=== PATIENT | male | born 1955 | race Caucasian/White ===

== ENCOUNTER 2016-08-31 20:32 | Inpatient (IN) | payer OTHER, MEDICAID ==
--- NOTE | 2016-08-31 20:40 | EDPHY ---
H & P Time Seen by Provider: 08/31/16 20:32 HPI/ROS: CHIEF COMPLAINT: Chest pain, suicidal ideation HISTORY OF PRESENT ILLNESS: The patient is a 61-year-old homeless man who was discharged from [facility] today. He called 911 from the postop stating that he had chest pain. He now states that it is gone. He states that it was present for about 4 hours. He denies shortness of breath or diaphoresis. It did not worsened with exertion. According to EMS it was tender to palpation. No fevers or recent infections. He denies recent drug or alcohol use. He also told EMS that he felt depressed and occasionally considered suicide and that that is why he was at [facility] for so long. REVIEW OF SYSTEMS: Constitutional: denies: chills, fever, recent illness, recent injury EENTM: denies: blurred vision, double vision, nose congestion Respiratory: denies: cough, shortness of breath Cardiac: See HPI Gastrointestinal/Abdominal: denies: abdominal pain, diarrhea, nausea, vomiting, blood streaked stools Genitourinary: denies: dysuria, frequency, hematuria, pain Musculoskeletal: denies: joint pain, muscle pain Skin: denies: lesions, rash, jaundice, bruising Neurological: denies: headache, numbness, paresthesia, tingling, dizziness, weakness Hematologic/Lymphatic: denies: blood clots, easy bleeding, easy bruising Immunologic/allergic: denies: HIV/AIDS, transplant EXAM: GENERAL: Well-appearing, well-nourished and in no acute distress. HEAD: Atraumatic, normocephalic. EYES: Pupils equal round and reactive to light, extraocular movements intact, sclera anicteric, conjunctiva are normal. ENT: TMs normal, nares patent, oropharynx clear without exudates. Moist mucous membranes. NECK: Normal range of motion, supple without lymphadenopathy or JVD. LUNGS: Breath sounds clear to auscultation bilaterally and equal. No wheezes rales or rhonchi. HEART: Regular rate and rhythm without murmurs, rubs or gallops. ABDOMEN: Soft, nontender, normoactive bowel sounds. No guarding, no rebound. No masses appreciated. BACK: No CVA tenderness, no spinal tenderness, step-offs or deformities EXTREMITIES: Normal range of motion, no pitting or edema. No clubbing or cyanosis. NEUROLOGICAL: Cranial nerves II through XII grossly intact. Normal speech, normal gait. 5/5 strength, normal movement in all extremities, normal sensation PSYCH: Normal mood, normal affect. SKIN: Warm, dry, normal turgor, no visible rashes or lesions. Source: Patient, EMS Exam Limitations: No limitations - Medical/Surgical History Hx Asthma: No Hx Chronic Respiratory Disease: No Hx Diabetes: Yes Hx Cardiac Disease: No Hx Renal Disease: No Hx Cirrhosis: No Hx Alcoholism: Yes Other PMH: Hypertension, depression - Family History Significant Family History: Hypertension - Social History Smoking Status: Current some day smoker Alcohol Use: Sober Drug Use: None Constitutional: Initial Vital Signs Temperature (C) 36.7 C 08/31/16 20:40 Heart Rate 103 H 08/31/16 20:40 Respiratory Rate 18 08/31/16 20:40 Blood Pressure 159/97 H 08/31/16 20:40 O2 Sat (%) 92 08/31/16 20:40 O2 Delivery Mode Nasal Cannula O2 (L/minute) 2 Allergies/Adverse Reactions: No Known Allergies Allergy (Unverified 08/31/16 20:42) Home Medications: Medication Instructions Recorded Metformin HCl 08/31/16 Synthroid 08/31/16 Unk Bp Med 08/31/16 Medical Decision Making - Diagnostics EKG Interpretation: An EKG obtained and was read and documented in trace view. Please see trace view for full reading and report. Sinus rhythm, no acute ischemic changes. Imaging: X-ray: chest x-ray was obtained. I viewed the images myself on the PACS system. My interpretation of the images is: negative for acute disease . The radiologist interpretation is possible right upper lobe infiltrate. ED Course/Re-evaluation: After further discussion the patient states that he has been coughing and is productive for green yellow mucus. He states that he is supposed to wear oxygen at 3 L for history of COPD. No longer smokes. He is now denying suicidality. Will initiate the sepsis protocol. I will place him on TB precautions. 10:10 p.m. I discussed the case with Dr. Fitch who will admit to the medical service. She suggested AFB smears and Rocephin/azithromycin. Differential Diagnosis: Partial list of the Differential diagnosis considered include but were not limited to; pneumonia, acute coronary disease, arrhythmia and although unlikely based on the history and physical exam, I also considered dissection, PE, aneurysm. - Data Points Laboratory Results: Laboratory Results 08/31/16 21:10 08/31/16 21:10 08/31/16 08/31/16 21:20 21:10 WBC 11.05 H 10^3/uL (3.80-9.50) RBC 4.50 10^6/uL (4.40-6.38) Hgb 13.9 g/dL (13.7-17.5) Hct 40.1 % (40.0-51.0) MCV 89.1 fL (81.5-99.8) MCH 30.9 pg (27.9-34.1) MCHC 34.7 g/dL (32.4-36.7) RDW 14.0 % (11.5-15.2) Plt Count 227 10^3/uL (150-400) MPV 9.1 fL (8.7-11.7) Neut % (Auto) 96.5 H % (39.3-74.2) Lymph % (Auto) 2.2 L % (15.0-45.0) [place] % (Auto) 0.5 L % (4.5-13.0) Eos % (Auto) 0.0 L % (0.6-7.6) Baso % (Auto) 0.2 L % (0.3-1.7) Nucleat RBC Rel Count 0.0 % (0.0-0.2) Absolute Neuts (auto) 10.66 H 10^3/uL (1.70-6.50) Absolute Lymphs (auto) 0.24 L 10^3/uL (1.00-3.00) Absolute Monos (auto) 0.06 L 10^3/uL (0.30-0.80) Absolute Eos (auto) 0.00 L 10^3/uL (0.03-0.40) Absolute Basos (auto) 0.02 10^3/uL (0.02-0.10) Absolute Nucleated RBC 0.00 10^3/uL (0-0.01) Immature Gran % 0.6 % (0.0-1.1) Immature Gran # 0.07 10^3/uL (0.00-0.10) PT 13.0 SEC (12.0-15.0) INR 0.99 (0.83-1.16) APTT 29.5 SEC (23.0-38.0) Sodium 138 mEq/L (134-144) Potassium 4.2 mEq/L (3.5-5.2) Chloride 101 mEq/L (97-110) Carbon Dioxide 26 mEq/l (22-31) Anion Gap 11 mEq/L (8-16) BUN 15 mg/dL (7-23) Creatinine 0.7 mg/dL (0.7-1.3) Estimated GFR > 60 Glucose 212 H mg/dL (70-100) Calcium 9.4 mg/dL (8.5-10.4) Troponin I < 0.012 ng/mL (0-0.034) Ethyl Alcohol < 10 mg/dL (0-10) Departure - Departure Disposition: [facility] Inpatient Acute Clinical Impression: Chest pain, Pneumonia, Sepsis Condition: Fair Referrals: NONE *PRIMARY CARE P,. [Primary Care Provider] - As per Instructions
--- NOTE | 2016-08-31 20:40 | CPEKG ---
Heart Rate: 103 RR Interval: 583 P-R Interval: 156 QRSD Interval: 84 QT Interval: 352 QTC Interval: 461 P Wallback: 36 QRS Wallback: -23 T Wave Wallback: 15 EKG Severity - OTHERWISE NORMAL ECG - EKG Impression: SINUS TACHYCARDIA EKG Impression: BORDERLINE LEFT AXIS DEVIATION Electronically Signed By: Tano Rushing 31-Aug-2016 20:42:59
[2016-08-31 21:24] LABS: % IMMATURE GRANULYOCYTES 0.6 % (0.0-1.1); ABSOLUTE IMMATURE GRANULOCYTES 0.07 10^3/uL (0.00-0.10); ADD DIFF? NO; ADD MORPH? NO; ADD SCAN? NO; ATYPICAL LYMPHOCYTE FLAG 0 (0-99); FRAGMENT RBC FLAG 0 (0-99); HEMATOCRIT 40.1 % (40.0-51.0); HEMOGLOBIN 13.9 g/dL (13.7-17.5); LEFT SHIFT FLG 0 (0-99); LIPEMIA HEMOLYSIS FLAG 90 (0-99); MEAN CELL HEMOGLOBIN 30.9 pg (27.9-34.1); MEAN CELL HEMOGLOBIN CONCENTR. 34.7 g/dL (32.4-36.7); MEAN CELL VOLUME 89.1 fL (81.5-99.8); MEAN PLATELET VOLUME 9.1 fL (8.7-11.7); PLATELET CLUMPS FLAG 10 (0-99); PLATELET COUNT 227 10^3/uL (150-400)
[2016-08-31 21:35] LABS: ANION GAP 11 mEq/L (8-16); CALCIUM 9.4 mg/dL (8.5-10.4); CARBON DIOXIDE 26 mEq/l (22-31); CHLORIDE 101 mEq/L (97-110); CREATININE 0.7 mg/dL (0.7-1.3); ETHANOL SERUM < 10 mg/dL (0-10); GLOMERULAR FILTRATION RATE > 60; GLUCOSE 212 mg/dL (70-100); POTASSIUM 4.2 mEq/L (3.5-5.2); SODIUM 138 mEq/L (134-144)
--- NOTE | 2016-08-31 21:40 | DX ---
Chest, Two Views, August 31, 2016 at 2057 hours History: Chest pain. Comparison: None. Findings: Cardiac silhouette is mildly enlarged. Patient slightly rotated to the right. Possible p atchy right upper lobe opacity. No pleural effusion, pneumothorax, or definite pulmonary edema. Impression: Possible right upper lobe pneumonia. Findings and recommendations discussed with Emergency Department physician, Dr. Rushing, at 2135 hour s, on August 31, 2016. Final report concurs with initial preliminary interpretation.
[2016-08-31 21:46] LABS: TROPONIN I < 0.012 ng/mL (0-0.034)
[2016-08-31 21:57] LABS: INR 0.99 (0.83-1.16)
[2016-08-31 21:58] LABS: APTT 29.5 SEC (23.0-38.0)
[2016-08-31] MEDS ORDERED: AZITHROMYCIN IV 500 MG in D5W 250 ML IV SCH (22:30)
[2016-08-31] MEDS ORDERED: ACETAMINOPHEN 325 MG TAB PO PRN (22:50)
[2016-08-31] MEDS ORDERED: ONDANSETRON 4 MG/2 ML VIAL IVP PRN (22:50)
[2016-08-31] MEDS ORDERED: ISONIAZID 300 MG TAB PO SCH (23:00)
--- NOTE | 2016-08-31 23:47 | PDGENHP ---
History and Physical - Chief Complaint cough, shortness of breath - History of Present Illness Patient is a 61-year-old homeless male with hypertension, hyperlipidemia, COPD and major depression disorder, with recent Mental Health inpatient stay for about 3 weeks for suicidal ideations, was discharged from [facility] today , presents to the ED complaining cough and shortness of breath. Patient states symptoms have been present for about 2 weeks, developed while an inpatient, initially with cough. Patient states over the past 2 weeks cough has become productive of yellow green sputum, which is sometimes associated with specks of hemoptysis in his sputum. In addition, he reports associated shortness of breath, generalized weakness, chills and reports associated drenching night sweats. He states he reported his symptoms to the [facility] staff, but did not undergo any treatment. Upon discharge from the facility today he states he felt significantly weak, generalized fatigue and short of breath, so he called EMS and was brought to the ED. Patient states he has been homeless for over 6 months, has been in and out of shelters, mostly in [place], prior to his inpatient stay. He denies any travel outside of the country, is from [place] and has lived here his whole life. He denies any obvious sick contacts. On arrival to the ED patient was afebrile, hemodynamically stable and saturating well on room air. Labs revealed mild leukocytosis, negative lactate and normal electrolytes. Chest x-ray revealed possible right upper lobe infiltrate, consistent with pneumonia. Given his risk factors, a symptoms and location of infiltrate on chest x-ray, patient was placed on airborne isolation given concern for TB. He was given ceftriaxone and Azithro and admitted the hospital service for further management. History Information - Allergies/Home Medication List Allergies/Adverse Reactions: No Known Allergies Allergy (Unverified 08/31/16 20:42) Home Medications: Metformin HCl 08/31/16 [Last Taken Unknown] Synthroid 08/31/16 [Last Taken Unknown] Unk Bp Med 08/31/16 [Last Taken Unknown] I have personally reviewed and updated: family history, medical history, social history, surgical history - Past Medical History Additional medical history: Depression. Hypertension. HLD. Hypothyroidism. COPD with chronic respiratory failure (reports previously being told he should be on 3L NC, but given his social status, has not had this avaiable to him) - Surgical History Reports: no pertinent surgical hx - Family History Additional family history: M: emphysema. F: CAD. B: DM2 - Social History Smoking Status: Former smoker (1-2 PPD x 40 years, quit 14 years ago) Alcohol Use: Sober Drug Use: None Review of Systems ROS: 10pt was reviewed & negative except for what was stated in HPI & below Physical Exam Temp Pulse Resp BP Pulse Ox 36.8 C 96 20 104/84 H 97 08/31/16 22:00 08/31/16 22:45 08/31/16 22:45 08/31/16 22:45 08/31/16 22:45 O2 (L/minute) 3 Constitutional: no apparent distress, appears nourished, not in pain Eyes: PERRL, anicteric sclera, EOMI Ears, Nose, Mouth, Throat: moist mucous membranes, hearing normal, ears appear normal, no oral mucosal ulcers Cardiovascular: regular rate and rhythym, no murmur, rub, or gallop, pulses symmetric bilaterally, No JVD, No edema Peripheral Pulses: 2+: dorsalis-pedis (R), dorsalis-pedis (L) Respiratory: no respiratory distress, no rales or rhonchi, bronchial breath sounds (on R lung field) Gastrointestinal: normoactive bowel sounds, soft, non-tender abdomen, no palpable masses, No hepatosplenomegally, No guarding, No rebound Genitourinary: no bladder fullness, no bladder tenderness Skin: warm, normal color, no rashes or abrasions, no fluctuance, No mottled Musculoskeletal: full muscle strength, no muscle tenderness, normal joint ROM, no joint effusions Neurologic: AAOx3, sensation intact bilaterally, CN II-XII Intact, No weakness, No numbness Psychiatric: interacting appropriately, not anxious, not encephalopathic, thought process linear Lab Data & Imaging Review 08/31/16 21:10 08/31/16 21:10 WBC 11.05 10^3/uL (3.80-9.50) H 08/31/16 21:10 RBC 4.50 10^6/uL (4.40-6.38) 08/31/16 21:10 Hgb 13.9 g/dL (13.7-17.5) 08/31/16 21:10 Hct 40.1 % (40.0-51.0) 08/31/16 21:10 MCV 89.1 fL (81.5-99.8) 08/31/16 21:10 MCH 30.9 pg (27.9-34.1) 08/31/16 21:10 MCHC 34.7 g/dL (32.4-36.7) 08/31/16 21:10 RDW 14.0 % (11.5-15.2) 08/31/16 21:10 Plt Count 227 10^3/uL (150-400) 08/31/16 21:10 MPV 9.1 fL (8.7-11.7) 08/31/16 21:10 Neut % (Auto) 96.5 % (39.3-74.2) H 08/31/16 21:10 Lymph % (Auto) 2.2 % (15.0-45.0) L 08/31/16 21:10 [place] % (Auto) 0.5 % (4.5-13.0) L 08/31/16 21:10 Eos % (Auto) 0.0 % (0.6-7.6) L 08/31/16 21:10 Baso % (Auto) 0.2 % (0.3-1.7) L 08/31/16 21:10 Nucleat RBC Rel Count 0.0 % (0.0-0.2) 08/31/16 21:10 Absolute Neuts (auto) 10.66 10^3/uL (1.70-6.50) H 08/31/16 21:10 Absolute Lymphs (auto) 0.24 10^3/uL (1.00-3.00) L 08/31/16 21:10 Absolute Monos (auto) 0.06 10^3/uL (0.30-0.80) L 08/31/16 21:10 Absolute Eos (auto) 0.00 10^3/uL (0.03-0.40) L 08/31/16 21:10 Absolute Basos (auto) 0.02 10^3/uL (0.02-0.10) 08/31/16 21:10 Absolute Nucleated RBC 0.00 10^3/uL (0-0.01) 08/31/16 21:10 Immature Gran % 0.6 % (0.0-1.1) 08/31/16 21:10 Immature Gran # 0.07 10^3/uL (0.00-0.10) 08/31/16 21:10 PT 13.0 SEC (12.0-15.0) 08/31/16 21:20 INR 0.99 (0.83-1.16) 08/31/16 21:20 APTT 29.5 SEC (23.0-38.0) 08/31/16 21:20 VBG Lactic Acid 1.4 mmol/L (0.7-2.1) 08/31/16 22:20 Sodium 138 mEq/L (134-144) 08/31/16 21:10 Potassium 4.2 mEq/L (3.5-5.2) 08/31/16 21:10 Chloride 101 mEq/L (97-110) 08/31/16 21:10 Carbon Dioxide 26 mEq/l (22-31) 08/31/16 21:10 Anion Gap 11 mEq/L (8-16) 08/31/16 21:10 BUN 15 mg/dL (7-23) 08/31/16 21:10 Creatinine 0.7 mg/dL (0.7-1.3) 08/31/16 21:10 Estimated GFR > 60 08/31/16 21:10 Glucose 212 mg/dL (70-100) H 08/31/16 21:10 Calcium 9.4 mg/dL (8.5-10.4) 08/31/16 21:10 Troponin I < 0.012 ng/mL (0-0.034) 08/31/16 21:10 Ethyl Alcohol < 10 mg/dL (0-10) 08/31/16 21:10 Visualized and Interpreted Chest x-ray results: Yes Chest X-Ray results: infiltrate (in RUL, ? possibly cavitary in appearance) Visualized and Interpreted EKG results: Yes EKG Interpretation: Positive for: normal sinsus rhythm (no st/t wave abnormalities) Assessment & Plan Assessment: Patient is a 61-year-old homeless male with a history of hypertension, hypothyroidism, COPD and depression who presents to the ED complaining of 2 weeks of cough, shortness of breath, ED workup reveals sepsis secondary to pneumonia. Plan: # sepsis, RUL infiltrate Patient complains of productive cough, subjective chills, night sweats, occasional hemoptysis. Meets SIRS criteria with tachycardia and leukocytosis on presentation and CXR appears consistent with a RUL infiltrate. Given the location of the infiltrate, patient's symptoms and his risk factors (homeless, living in several shelters over past 6 months), there is a concern for TB. Will treat for community acquired pna (gram pos/gram neg coverage) with Ceftriaxone/ azithro and check sputum AFB smear and culture. Can consider CT chest w IV contrast to further evaluate characteristics of the RUL infiltrate. # acute on chronic respiratory failure, COPD Patient mildly hypoxic on room air, apparently should be on 2-3L NC chronically. Not in respiratory distress, no obvious wheezing on exam. Will cont NC, give nebs standing and prn. No evidence of acute COPD exacerbation. # HTN BP stable. Not currently taking outpatient meds. Will monitor and try to confirm previous home meds. # hypothyroidism Stable, will check TSH, confirm synthroid dose and restart. # dispo: will admit under observation status for treatment of community acquired pneumonia, however, may need to r/o TB also, which may require > 2 MN # gen: cardiac diet DVT ppx: lovenox Full code
[2016-08-31] MEDS ORDERED: AZITHROMYCIN 250 MG TAB PO ONE (23:57)
[2016-09-01 01:52] LABS: COLOR YELLOW; LEUKOCYTE ESTERASE,URINE NEGATIVE (NEGATIVE); NITRITE,URINE NEGATIVE (NEGATIVE)
[2016-09-01 06:01] LABS: % IMMATURE GRANULYOCYTES 0.5 % (0.0-1.1); ABSOLUTE IMMATURE GRANULOCYTES 0.05 10^3/uL (0.00-0.10); ADD DIFF? NO; ADD MORPH? NO; ADD SCAN? NO; ATYPICAL LYMPHOCYTE FLAG 0 (0-99); FRAGMENT RBC FLAG 0 (0-99); HEMATOCRIT 39.6 % (40.0-51.0); HEMOGLOBIN 13.6 g/dL (13.7-17.5); LEFT SHIFT FLG 0 (0-99); LIPEMIA HEMOLYSIS FLAG 90 (0-99); MEAN CELL HEMOGLOBIN 30.6 pg (27.9-34.1); MEAN CELL HEMOGLOBIN CONCENTR. 34.3 g/dL (32.4-36.7); MEAN PLATELET VOLUME 9.2 fL (8.7-11.7); PLATELET CLUMPS FLAG 0 (0-99); PLATELET COUNT 254 10^3/uL (150-400); RED BLOOD CELL COUNT 4.45 10^6/uL (4.40-6.38); RED CELL DISTRIBUTION WIDTH 13.8 % (11.5-15.2)
[2016-09-01 06:16] LABS: ANION GAP 9 mEq/L (8-16); CALCIUM 9.2 mg/dL (8.5-10.4); CARBON DIOXIDE 25 mEq/l (22-31); CHLORIDE 102 mEq/L (97-110); CREATININE 0.7 mg/dL (0.7-1.3); GLOMERULAR FILTRATION RATE > 60; GLUCOSE 225 mg/dL (70-100); POTASSIUM 4.6 mEq/L (3.5-5.2); SODIUM 136 mEq/L (134-144)
[2016-09-01 06:27] LABS: TROPONIN I < 0.012 ng/mL (0-0.034)
[2016-09-01 06:37] LABS: INR 1.05 (0.83-1.16); PROTIME(PATIENT) 13.6 SEC (12.0-15.0)
[2016-09-01 06:38] LABS: APTT 27.3 SEC (23.0-38.0)
[2016-09-01] MEDS ORDERED: RIFAMPIN 300 MG CAP PO SCH (07:30)
[2016-09-01] MEDS: AZITHROMYCIN 250 MG TAB PO SCH (11:17)
[2016-09-01] MEDS: ENOXAPARIN 40 MG/0.4 ML SYR SC SCH (11:17)
[2016-09-01] MEDS: ALBUTEROL 3 ML DEYVIAL IH PRN (11:30)
[2016-09-01] MEDS ORDERED: ALBUTEROL 60 PUFFS/8 GM MDI IH PRN (15:40)
[2016-09-01] MEDS: LEVOTHYROXINE 150 MCG TAB PO SCH (16:41)
[2016-09-01] MEDS: busPIRone 10 MG TAB PO SCH ×2 (16:41→20:13)
[2016-09-01] MEDS: BENZTROPINE MESYLATE 2 MG TAB PO SCH ×2 (16:42→20:13)
[2016-09-01] MEDS: HALOPERIDOL 5 MG TAB PO SCH ×2 (16:42→20:13)
[2016-09-01] MEDS: metFORMIN HCL 500 MG TAB PO SCH (16:42)
--- NOTE | 2016-09-01 19:33 | HOSPPROG ---
Hospitalist Progress Note Assessment/Plan: DIAGNOSIS: -Community-acquired pneumonia, most likely atypical bacterial but with low level suspicion for TB, his sputums pending -Acute mild sepsis, resolved -Recurrent chest pain, so far no signs of ischemia heart failure or arrhythmia PLANS: continue current antibiotics Await cultures and sputum results There is a troponin that was done after a recurrent episode of chest pain today still pending, will follow up on this Consider stress testing either at the end of this hospital stay or in the near future outpatient depending on his condition. SUBJECTIVE: The patient at this point still has a lot of coughing mild dyspnea. No nausea, eating Has been able to walk around the room his leg holding up well The patient did have an episode of chest pain this evening, without other worsening symptoms or change vital signs OBJECTIVE Vitals reviewed: stable without fever Exam: alert oriented skin warm dry color ok resps not labored lungs very rhonchorous particularly in the right upper lobe heart regular abd soft nondistended nontender, bowel sounds present limbs warm, no edema iv site ok Objective: Vital Signs Temp Pulse Resp BP Pulse Ox 36.4 C 86 18 122/75 H 94 09/01/16 16:15 09/01/16 16:15 09/01/16 16:15 09/01/16 16:15 09/01/16 16:15 Microbiology 09/01/16 04:21 Mycobacterial Smear (NICOLE) - Final Sputum, Expectorated Laboratory Results 09/01/16 05:50 09/01/16 05:50 08/31/16 09/01/16 09/02/16 06:59 06:59 06:59 Intake Total 440 Balance 440 PT 13.6 SEC (12.0-15.0) 09/01/16 05:50 INR 1.05 (0.83-1.16) 09/01/16 05:50 ICD10 Worksheet Patient Problems: Problems Problem Status Diagnosed Chest pain Acute Pneumonia Acute Sepsis Acute
[2016-09-01] MEDS: PRAZOSIN HCL 1 MG CAP PO SCH (20:12)
[2016-09-01] MEDS: ATORVASTATIN CALCIUM 10 MG TAB PO SCH (20:12)
--- NOTE | 2016-09-01 20:13 | CPEKG ---
Heart Rate: 83 RR Interval: 723 P-R Interval: 164 QRSD Interval: 82 QT Interval: 376 QTC Interval: 442 P [place]: 37 QRS [place]: -14 T Wave [place]: 20 EKG Severity - NORMAL ECG - EKG Impression: SINUS RHYTHM Electronically Signed By: Veda Atwood 02-Sep-2016 00:21:19
[2016-09-01] MEDS: FLUTICASONE/SALMETER 250/50MCG DISKUS IH SCH (20:43)
[2016-09-01] MEDS ORDERED: diphenhydrAMINE 25 MG CAP PO PRN (20:52)
[2016-09-01] MEDS ORDERED: PRAZOSIN HCL 4 MG PO SCH (21:00)
[2016-09-01] MEDS: NS 1,000 ML IV SCH (21:08)
[2016-09-01] MEDS: traZODone 50 MG TAB PO SCH (21:09)
[2016-09-01] MEDS: MELATONIN 3 MG TAB PO SCH (21:09)
[2016-09-02] MEDS: HALOPERIDOL 5 MG TAB PO SCH ×4 (04:44→19:45)
[2016-09-02] MEDS: LEVOTHYROXINE 150 MCG TAB PO SCH (04:44)
[2016-09-02] MEDS: NS 1,000 ML IV SCH (04:45)
[2016-09-02] MEDS: metFORMIN HCL 500 MG TAB PO SCH ×3 (08:26→16:53)
[2016-09-02] MEDS: ENOXAPARIN 40 MG/0.4 ML SYR SC SCH (08:26)
[2016-09-02] MEDS: AZITHROMYCIN 250 MG TAB PO SCH ×2 (08:26→09:50)
[2016-09-02] MEDS: FLUTICASONE/SALMETER 250/50MCG DISKUS IH SCH ×3 (08:53→19:51)
[2016-09-02] MEDS: ALBUTEROL 3 ML DEYVIAL IH PRN ×3 (08:53→22:32)
[2016-09-02] MEDS: BENZTROPINE MESYLATE 2 MG TAB PO SCH ×3 (09:49→22:11)
[2016-09-02] MEDS: busPIRone 10 MG TAB PO SCH ×3 (09:49→22:10)
[2016-09-02] MEDS ORDERED: FLU VACC QS 2016-17(3-64YR)/PF 0.5 ML SYR (FLUARIX QUAD) IM ONE (11:29)
[2016-09-02] MEDS ORDERED: LACTULOSE 20 GM/30 ML UDCUP PO PRN (12:00)
[2016-09-02] MEDS ORDERED: MAGNESIUM HYDROXIDE 30 ML UDCUP PO PRN (12:00)
[2016-09-02] MEDS ORDERED: BISACODYL 10 MG SUPP PR PRN (12:00)
[2016-09-02] MEDS ORDERED: POLYETHYLENE GLYCOL 3350 17 GM PKT PO PRN (12:00)
[2016-09-02] MEDS: DULoxetine 60 MG CAP PO SCH (12:42)
[2016-09-02] MEDS ORDERED: CEPACOL LOZENGE PO PRN (14:17)
--- NOTE | 2016-09-02 14:47 | HOSPPROG ---
Hospitalist Progress Note Assessment/Plan: DIAGNOSES: -COMMUNITY-ACQUIRED PNEUMONIA -most likely atypical bacterial but with low level suspicion for TB, his sputums pending for AFB -ACUTE MILD SEPSIS -resolved -DEPRESSION AND BIPOLAR DISORDER, WITH ACTIVE SYMPTOMS OF SEVERE DEPRESSION AND AUDITORY HALLUCINATIONS -he remains on medical therapy, was just recently discharged from [facility] for the same -he appears to be at his current baseline though quite symptomatic; it may be useful to seek psychiatric consultation before discharge to ensure his medical therapy is appropriate -will to attempt to get records from [facility] -RECURRENT CHEST PAIN, RULED OUT MYOCARDIAL INFARCTION, NO EVIDENCE OF HEART FAILURE OR ARRHYTHMIA PLANS: continue current antibiotics Await cultures and sputum results; remains on negative pressure room isolation pending AFB smears Continue his usual psychiatric medications He has requested spiritual care consult/clears revisit here for his mental health symptoms and I have requested that today Consider stress testing either at the end of this hospital stay or in the near future outpatient depending on his condition. SUBJECTIVE: The patient at this point still has a lot of coughing mild dyspnea. No nausea, eating Has been able to walk around the room The patient did have an episode of chest pain this evening, without other worsening symptoms or change vital signs OBJECTIVE Vitals reviewed: stable without fever Exam: alert oriented skin warm dry color ok resps not labored lungs very rhonchorous particularly in the right upper lobe heart regular abd soft nondistended nontender, bowel sounds present limbs warm, no edema iv site ok Objective: Vital Signs Temp Pulse Resp BP Pulse Ox 37.1 C 79 16 122/76 H 94 09/02/16 07:58 09/02/16 07:58 09/02/16 07:58 09/02/16 07:58 09/02/16 07:58 PT 13.6 SEC (12.0-15.0) 09/01/16 05:50 INR 1.05 (0.83-1.16) 09/01/16 05:50 ICD10 Worksheet Patient Problems: Problems Problem Status Diagnosed Chest pain Acute Pneumonia Acute Sepsis Acute
--- NOTE | 2016-09-02 14:49 | HOSPPROG ---
Hospitalist Progress Note Assessment/Plan: DIAGNOSES: -COMMUNITY-ACQUIRED PNEUMONIA -most likely atypical bacterial but with low level suspicion for TB, his sputums pending for AFB -ACUTE MILD SEPSIS -resolved -DEPRESSION AND BIPOLAR DISORDER, WITH ACTIVE SYMPTOMS OF SEVERE DEPRESSION AND AUDITORY HALLUCINATIONS -he remains on medical therapy, was just recently discharged from [facility] for the same -he appears to be at his current baseline though quite symptomatic; it may be useful to seek psychiatric consultation before discharge to ensure his medical therapy is appropriate -will to attempt to get records from [facility] -RECURRENT CHEST PAIN, RULED OUT MYOCARDIAL INFARCTION, NO EVIDENCE OF HEART FAILURE OR ARRHYTHMIA PLANS: continue current antibiotics Await cultures and sputum results; remains on negative pressure room isolation pending AFB smears Continue his usual psychiatric medications He has requested spiritual care consult/clears revisit here for his mental health symptoms and I have requested that today Consider stress testing either at the end of this hospital stay or in the near future outpatient depending on his condition. SUBJECTIVE: His main complaint today is ongoing depression, with continued auditory hallucinations. He tells me that he hears God saying that God wants the patient to . He is not currently suicidal or homicidal still has a lot of coughing mild dyspnea. No nausea, eating Has been able to walk around the room The patient did have an episode of chest pain this evening, without other worsening symptoms or change vital signs OBJECTIVE Vitals reviewed: stable without fever Exam: alert oriented skin warm dry color ok resps not labored lungs very rhonchorous particularly in the right upper lobe heart regular abd soft nondistended nontender, bowel sounds present limbs warm, no edema iv site ok Objective: Vital Signs Temp Pulse Resp BP Pulse Ox 37.1 C 79 16 122/76 H 94 09/02/16 07:58 09/02/16 07:58 09/02/16 07:58 09/02/16 07:58 09/02/16 07:58 PT 13.6 SEC (12.0-15.0) 09/01/16 05:50 INR 1.05 (0.83-1.16) 09/01/16 05:50 ICD10 Worksheet Patient Problems: Problems Problem Status Diagnosed Chest pain Acute Pneumonia Acute Sepsis Acute
[2016-09-02] MEDS: PRAZOSIN HCL 1 MG CAP PO SCH (19:45)
[2016-09-02] MEDS: SENNOSIDES/DOCUSATE SODIUM TAB PO SCH (19:46)
[2016-09-02] MEDS: ATORVASTATIN CALCIUM 10 MG TAB PO SCH (19:46)
[2016-09-02] MEDS: MELATONIN 3 MG TAB PO SCH (19:47)
[2016-09-02] MEDS: traZODone 50 MG TAB PO SCH (19:47)
[2016-09-03 03:26] LABS: HEMOGLOBIN A1C 6.6 % (4.0-6.0)
[2016-09-03] MEDS: ALBUTEROL 3 ML DEYVIAL IH PRN (04:48)
[2016-09-03] MEDS: HALOPERIDOL 5 MG TAB PO SCH ×5 (05:59→22:06)
[2016-09-03] MEDS: LEVOTHYROXINE 150 MCG TAB PO SCH (05:59)
[2016-09-03] MEDS: busPIRone 10 MG TAB PO SCH ×3 (08:39→22:06)
[2016-09-03] MEDS: metFORMIN HCL 500 MG TAB PO SCH ×2 (08:39→17:41)
[2016-09-03] MEDS: ASPIRIN EC 81 MG TAB PO SCH (08:39)
[2016-09-03] MEDS: ENOXAPARIN 40 MG/0.4 ML SYR SC SCH (08:39)
[2016-09-03] MEDS: BENZTROPINE MESYLATE 2 MG TAB PO SCH ×3 (08:40→22:06)
[2016-09-03] MEDS: AZITHROMYCIN 250 MG TAB PO SCH (08:40)
[2016-09-03] MEDS: DULoxetine 60 MG CAP PO SCH (08:41)
[2016-09-03] MEDS: SENNOSIDES/DOCUSATE SODIUM TAB PO SCH ×2 (08:41→19:47)
[2016-09-03] MEDS: FLUTICASONE/SALMETER 250/50MCG DISKUS IH SCH ×2 (10:00→22:00)
--- NOTE | 2016-09-03 15:09 | HOSPPROG ---
Hospitalist Progress Note Assessment/Plan: Patient is a 61-year-old with hypertension, hyperlipidemia and major depression disorder who presented to the emergency room with shortness of breath. Prior to his admission he was discharged from [facility]. He had received treatment for 3 weeks for suicidal ideation. He has been homeless for the past 6 months. Today is my 1st encounter with the patient. #. community-acquired pneumonia * most likely atypical * chest x-ray on admission showed a possible right upper lobe infiltrate * patient was placed on airborne isolation due to concern for TB/ 1st AFB is - 2nd two are pending * white blood cell count minimally elevated patient without fever * on ceftriaxone and azithromycin (08/31) * blood cultures no growth to date # depression and bipolar disorder with ongoing symptoms * on Cogentin and BuSpar * going to his [facility] did not help him per his input #. homelessness * I suspect this is 1 of the causes of his major depression * when I asked him what I could do to help him today. He asked if there is any way he could go to some type of nursing facility * spoke with case management /they will evaluate if there is any possible placement for the patient #. recurrent chest pain * he was evaluated by the previous provider * ruled out NV, no evidence of heart failure or the arrhythmia * he has no complaints during my interview #. COPD * has been told that he needs chronic O2 * the fact that he is homeless is impacting his ability to use oxygen #. hyperglycemia * hemoglobin A1c is 6.6 * on metformin #. plan. Continue negative pressure room until all AFBs are negative. Have asked CM to evaluate for any placement. Subjective: Yong says he feels poorly and that he isn't feeling any better since being admitted. Objective: Vital Signs Temp Pulse Resp BP Pulse Ox 37.4 C 87 16 122/77 H 93 09/03/16 07:53 09/03/16 07:53 09/03/16 07:53 09/03/16 07:53 09/03/16 12:04 09/02/16 09/03/16 09/04/16 05:59 05:59 05:59 Intake Total 1999 Balance 1999 PT 13.6 SEC (12.0-15.0) 09/01/16 05:50 INR 1.05 (0.83-1.16) 09/01/16 05:50 - Physical Exam Constitutional: appears nourished, not in pain, chronically ill appearing Eyes: PERRL Ears, Nose, Mouth, Throat: hearing normal Cardiovascular: regular rate and rhythym Respiratory: no respiratory distress, rhonchi (bibasilar) Skin: warm, No normal color (pale) Musculoskeletal: no muscle tenderness Neurologic: AAOx3 Psychiatric: depressed, flat affect ICD10 Worksheet Patient Problems: Problems Problem Status Diagnosed Chest pain Acute Pneumonia Acute Sepsis Acute
[2016-09-03] MEDS: ATORVASTATIN CALCIUM 10 MG TAB PO SCH (19:46)
[2016-09-03] MEDS: traZODone 50 MG TAB PO SCH (19:46)
[2016-09-03] MEDS: PRAZOSIN HCL 1 MG CAP PO SCH (19:47)
[2016-09-03] MEDS: MELATONIN 3 MG TAB PO SCH (19:47)
[2016-09-03] MEDS: HYDROCODONE/APAP 5/325 TAB PO PRN ×2 (19:47→23:34)
[2016-09-04] MEDS: HYDROCODONE/APAP 5/325 TAB PO PRN (03:53)
[2016-09-04] MEDS: LEVOTHYROXINE 150 MCG TAB PO SCH (03:53)
[2016-09-04] MEDS: HALOPERIDOL 5 MG TAB PO SCH ×4 (05:11→19:58)
[2016-09-04] MEDS: ENOXAPARIN 40 MG/0.4 ML SYR SC SCH (08:05)
[2016-09-04] MEDS: busPIRone 10 MG TAB PO SCH ×3 (08:06→19:59)
[2016-09-04] MEDS: DULoxetine 60 MG CAP PO SCH ×2 (08:06→19:58)
[2016-09-04] MEDS: AZITHROMYCIN 250 MG TAB PO SCH (08:06)
[2016-09-04] MEDS: ASPIRIN EC 81 MG TAB PO SCH (08:06)
[2016-09-04] MEDS: metFORMIN HCL 500 MG TAB PO SCH ×2 (08:06→17:19)
[2016-09-04] MEDS: SENNOSIDES/DOCUSATE SODIUM TAB PO SCH ×2 (08:07→19:59)
[2016-09-04] MEDS: BENZTROPINE MESYLATE 1 MG TAB PO SCH ×3 (08:33→19:59)
--- NOTE | 2016-09-04 09:48 | HOSPPROG ---
Hospitalist Progress Note Assessment/Plan: Patient is a 61-year-old with hypertension, hyperlipidemia and major depression disorder who presented to the emergency room with shortness of breath. Prior to his admission he was discharged from [facility]. He had received treatment for 3 weeks for suicidal ideation. He has been homeless for the past 6 months. #. community-acquired pneumonia * most likely atypical * chest x-ray on admission showed a possible right upper lobe infiltrate * patient was placed on airborne isolation due to concern for TB/ all 3 AFB are negative * white blood cell count minimally elevated patient without fever * on ceftriaxone and azithromycin (08/31) * blood cultures no growth to date #.mild sepsis on admission * resolved # depression and bipolar disorder with ongoing symptoms * on Cogentin and BuSpar * going to his [facility] did not help him per his input * says if he is dc he will kill himself/ is not actively suicidal * spoke with psychiatry / he can go to once cleared from hospital * Cymbalta dose increased #. homelessness * I suspect this is 1 of the causes of his major depression * when I asked him what I could do to help him today. He asked if there is any way he could go to some type of nursing facility * spoke with case management /they will evaluate if there is any possible placement for the patient #. recurrent chest pain * he was evaluated by the previous provider * ruled out [place], no evidence of heart failure or the arrhythmia * he has no complaints during my interview #. COPD * has been told that he needs chronic O2 * the fact that he is homeless is impacting his ability to use oxygen #. hyperglycemia * hemoglobin A1c is 6.6 * on metformin #. plan. see Dr Youngblood's note/ plan is for psych IP admission / hopefully, tomorrow if better Subjective: Yong is telling me he feels poorly today. Continues to feel short of breath. Objective: Vital Signs Temp Pulse Resp BP Pulse Ox 36.9 C 81 16 111/79 92 09/04/16 07:25 09/04/16 07:25 09/04/16 07:25 09/04/16 07:25 09/04/16 07:25 Microbiology 09/03/16 05:00 Mycobacterial Smear (NICOLE) - Final Sputum, Expectorated 09/02/16 12:12 Mycobacterial Smear (NICOLE) - Final Sputum, Expectorated 09/03/16 09/04/16 09/05/16 05:59 05:59 05:59 Intake Total 1999 650 Balance 1999 650 PT 13.6 SEC (12.0-15.0) 09/01/16 05:50 INR 1.05 (0.83-1.16) 09/01/16 05:50 - Physical Exam Constitutional: not in pain, chronically ill appearing Eyes: PERRL Ears, Nose, Mouth, Throat: hearing normal Cardiovascular: regular rate and rhythym Respiratory: no respiratory distress Gastrointestinal: normoactive bowel sounds Skin: warm, No normal color (pale) Musculoskeletal: no muscle tenderness Neurologic: AAOx3 Psychiatric: depressed, flat affect, No suicidal ideation ICD10 Worksheet Patient Problems: Problems Problem Status Diagnosed Chest pain Acute Pneumonia Acute Sepsis Acute
--- NOTE | 2016-09-04 12:05 | SOAPPROG ---
[id number] who states he is currently depressed and suicidal. Plan:When medically stable call [facility] for eval for psych admission [id number] pt has SI but does not need an M1 as he is willing to go to psych unit and will not attempt to leave or hurt self will increase Cymbalta to 60mg BID for depression 09/04/16 12:15 09/05/16 13:17 09/08/16 15:29 Subjective: "Depressed." Objective: Vital Signs Temp Pulse Resp BP Pulse Ox 36.9 C 81 16 111/79 92 09/04/16 07:25 09/04/16 07:25 09/04/16 07:25 09/04/16 07:25 09/04/16 07:25 Microbiology 09/03/16 05:00 Mycobacterial Smear (NICOLE) - Final Sputum, Expectorated 09/02/16 12:12 Mycobacterial Smear (NICOLE) - Final Sputum, Expectorated 09/03/16 09/04/16 09/05/16 05:59 05:59 05:59 Intake Total 1999 650 Balance 1999 650 PT 13.6 SEC (12.0-15.0) 09/01/16 05:50 INR 1.05 (0.83-1.16) 09/01/16 05:50 Pt is A+O x4 mood-depressed affect-const + veg sx of depression +SI but will not attempt here no HI no A/V H no sx psychosis/nika memory-fair conc-fair I/J-fair - Time Spent With Patient Time Spent With Patient: 30' - Pending Discharge Pending Discharge Within 24 Hours: Yes Pending Discharge Within 48 Hours: Yes Pending Discharge Date: 09/09/16 Pending Discharge Time: 11:00 ICD10 Worksheet Patient Problems: Problems Problem Status Diagnosed Chest pain Acute Pneumonia Acute Sepsis Acute
[2016-09-04] MEDS: ALBUTEROL 3 ML DEYVIAL IH PRN (12:14)
[2016-09-04] MEDS: FLUTICASONE/SALMETER 250/50MCG DISKUS IH SCH ×2 (12:14→19:54)
[2016-09-04] MEDS: PRAZOSIN HCL 1 MG CAP PO SCH (19:58)
[2016-09-04] MEDS: traZODone 50 MG TAB PO SCH (19:58)
[2016-09-04] MEDS: MELATONIN 3 MG TAB PO SCH (19:59)
[2016-09-04] MEDS: ATORVASTATIN CALCIUM 10 MG TAB PO SCH (19:59)
[2016-09-04 23:25] VITALS: TEMP 97.8; O2SAT 92
[2016-09-05] MEDS: ALBUTEROL 3 ML DEYVIAL IH PRN (00:27)
[2016-09-05] MEDS: LEVOTHYROXINE 150 MCG TAB PO SCH (04:41)
[2016-09-05] MEDS: HALOPERIDOL 5 MG TAB PO SCH ×4 (04:41→20:08)
[2016-09-05] MEDS: metFORMIN HCL 500 MG TAB PO SCH ×2 (08:46→17:19)
[2016-09-05] MEDS: ASPIRIN EC 81 MG TAB PO SCH (08:46)
[2016-09-05] MEDS: DULoxetine 60 MG CAP PO SCH ×2 (08:46→20:08)
[2016-09-05] MEDS: ENOXAPARIN 40 MG/0.4 ML SYR SC SCH (08:46)
[2016-09-05] MEDS: BENZTROPINE MESYLATE 1 MG TAB PO SCH ×3 (08:47→20:09)
[2016-09-05] MEDS: busPIRone 10 MG TAB PO SCH ×3 (08:47→20:10)
[2016-09-05] MEDS: SENNOSIDES/DOCUSATE SODIUM TAB PO SCH ×2 (08:47→20:15)
[2016-09-05] MEDS: FLUTICASONE/SALMETER 250/50MCG DISKUS IH SCH (08:48)
[2016-09-05 09:19] VITALS: RESP 14
--- NOTE | 2016-09-05 10:29 | PDIAF ---
- Diagnosis Diagnosis: PNA Code Status: Full Code - Medication Management Discharge Medications: Medications to Continue on Transfer Albuterol [Proventil Inhaler HFA (*)] 2 puffs IH Q4 PRN 09/01/16 [Last Taken Unknown] Atorvastatin Calcium [Lipitor 10 mg (*)] 10 mg PO HS 09/01/16 [Last Taken Unknown] Benztropine Mesylate [Cogentin (*)] 1 mg PO TID 09/01/16 [Last Taken Unknown] Fluticasone/Salmeter 250/50Mcg [Advair 250/50 (*)] 1 puffs IH BID 09/01/16 [ Last Taken Unknown] Haloperidol [Haldol 5 MG (*)] 5 mg PO QID 09/01/16 [Last Taken Unknown] Levothyroxine [Synthroid 150 mcg (*)] 150 mcg PO DAILY06 09/01/16 [Last Taken Unknown] Prazosin HCl [Minipress] 4 mg PO HS 09/01/16 [Last Taken Unknown] busPIRone [Buspar (*)] 20 mg PO TID 09/01/16 [Last Taken Unknown] metFORMIN HCL [Glucophage 500 mg (*)] 500 mg PO BIDMEAL 09/01/16 [Last Taken ] Aspirin EC [Aspirin EC 81 mg (*)] 81 mg PO DAILY 09/02/16 [Last Taken 08/31/16] DULoxetine [Cymbalta 60 MG (*)] 60 mg PO DAILY 09/02/16 [Last Taken Unknown] Acetaminophen [Tylenol 325mg (*)] 650 mg PO Q4HRS PRN #0 tab 09/05/16 [Last Taken Unknown] Benzocaine/Menthol 15/4 [Cepacol Lozenge] 1 ea PO PRN PRN #0 lozenge 09/05/16 [ Last Taken Unknown] Hydrocodone/APAP 5/325 [[place] 5/325 (*)] 1 - 2 tab PO Q4HRS PRN #0 tab 09/05/16 [Last Taken Unknown] Melatonin [Melatonin 3 MG (*)] 3 mg PO HS #0 tab 09/05/16 [Last Taken Unknown] Ondansetron Odt [Zofran Odt 4 mg (*)] 4 mg PO Q4HRS PRN #0 tab 09/05/16 [Last Taken Unknown] Polyethylene Glycol 3350 [Miralax 17 gm (*)] 17 gm PO DAILY PRN #0 pkt 09/05/16 [Last Taken Unknown] Sennosides/Docusate Sodium [Senokot-S] 1 - 2 tab PO BID #0 tab 09/05/16 [Last Taken Unknown] levOFLOXACIN [levAQUIN (*)] 750 mg PO DAILY AT 10AM #0 tab 09/05/16 [Last Taken Unknown] traZODone [traZODONE 50MG (*)] 50 mg PO HS #0 tab 09/05/16 [Last Taken Unknown] Winter [employer] Manager Antibiotics: Levaquin 750mg PO Daily Winter [employer] Manager Antibiotic Stop Date: 09/06/16 Discharge Medications: Refer to the Discharge Home Medication list for PRN reason. PICC Care - Routine: N/A - Orders Diet Recommendation: no restrictions on diet - Follow Up Care Current Providers and Referrals: NONE *PRIMARY CARE P,. [Primary Care Provider] - As per Instructions
--- NOTE | 2016-09-05 15:20 | HOSPPROG ---
Hospitalist Progress Note Objective: Vital Signs Temp Pulse Resp BP Pulse Ox 36.6 C 90 14 114/76 92 09/05/16 08:00 09/05/16 09:19 09/05/16 09:19 09/05/16 08:00 09/05/16 09:19 Microbiology 09/03/16 05:00 Mycobacterial Smear (NICOLE) - Final Sputum, Expectorated 09/02/16 12:12 Mycobacterial Smear (NICOLE) - Final Sputum, Expectorated 09/04/16 09/05/16 09/06/16 05:59 05:59 05:59 Intake Total 650 450 240 Balance 650 450 240 PT 13.6 SEC (12.0-15.0) 09/01/16 05:50 INR 1.05 (0.83-1.16) 09/01/16 05:50 ICD10 Worksheet Patient Problems: Problems Problem Status Diagnosed Chest pain Acute Pneumonia Acute Sepsis Acute
[2016-09-05 15:31] VITALS: BP 131/82; PULSE 97
[2016-09-05] MEDS: ONDANSETRON DISINTEGRATING 4 MG TAB PO PRN ×2 (15:39→19:17)
--- NOTE | 2016-09-05 16:48 | GDS ---
[f rep st] DISCHARGE SUMMARY DISCHARGE DIAGNOSES: 1. Suicidal ideation with depression. 2. Community-acquired pneumonia. 3. Sepsis on admission. 4. History of depression with bipolar disorder. 5. Homelessness. 6. Recurrent chest pain. 7. Chronic obstructive pulmonary disease. CONSULTATIONS: Psychiatry. PHYSICAL EXAM: GENERAL: Patient is alert. VITAL SIGNS: Afebrile 36.6, pulse 97, respiratory rate is 14, blood pressure is 131/82. He is saturating 92% on 2 L. HOSPITAL COURSE: The patient is a 61-year-old male, who presented to the emergency room with complai nts of shortness of breath. He was evaluated and diagnosed with: 1. Community-acquired pneumonia. During this hospitalization, he was treated with Rocephin and azit hromycin. He has been transitioned to Levaquin for a total of 1 more day. His condition is signific antly improved. 2. Acute hypoxemic respiratory failure. The patient continues to require supplemental oxygen and wi ll be discharged with supplemental oxygen. I anticipate that this condition will resolve in the near future. 3. Sepsis on admission. This has resolved. 4. Depression with bipolar disorder. The patient continues to have suicidal ideation with depressio n. He is being discharged to the Behavioral Health inpatient unit for further therapies and manageme nt. 5. Homelessness. Dispo plan is pending his psychiatric inpatient evaluation. 6. Recurrent chest pain. This is anxiety-related and has resolved. DISPOSITION: The patient will be discharged to Inpatient Rehabilitation Psychiatry. There are no pen ding studies. DISCHARGE MEDICATIONS: Please refer to EMR form. FOLLOWUP: Will be at [facility], as well as likely [facility] or whatever is arranged by Inpatient Psychiatry. I spent greater than 35 minutes in the care, coordination, and management of this patient's dispositi on. /[id number]/MODL
[2016-09-05] MEDS ORDERED: NICOTINE POLACRILEX 2 MG GUM B PRN (18:11)
[2016-09-05] MEDS ORDERED: MAG HYDROX/AL HYDROX/SIMETH 30 ML UDCUP PO PRN (18:11)
[2016-09-05] MEDS ORDERED: LORazepam 0.5 MG TAB PO PRN (18:11)
[2016-09-05] MEDS ORDERED: OLANZapine DISINTEGR 10 MG TAB PO PRN (18:11)
[2016-09-05] MEDS: ATORVASTATIN CALCIUM 10 MG TAB PO SCH (20:08)
[2016-09-05] MEDS: PRAZOSIN HCL 1 MG CAP PO SCH (20:09)
[2016-09-05] MEDS: MELATONIN 3 MG TAB PO SCH (20:09)
[2016-09-05] MEDS: traZODone 50 MG TAB PO SCH (20:09)
== END 2016-09-05 20:45 | DRG 871 ==
LOC: EDUNIT# → F2W 09-01 09:59 → OBSVTOIN 09-01 19:30 → F3N 09-01 22:37 → F3E 09-03 15:44
PROVIDERS: ADMIT Internal Medicine; ATTEND Student in an Organized Health Care Education/Training Program
DX: A41.9 Sepsis, unspecified organism (principal); J18.9 Pneumonia, unspecified organism; J96.21 Acute and chronic respiratory failure with hypoxia; J44.9 Chronic obstructive pulmonary disease, unspecified; F31.4 Bipolar disorder, current episode depressed, severe, without psychotic features; R45.851 Suicidal ideations; I10 Essential (primary) hypertension; E03.9 Hypothyroidism, unspecified; Z59.0 Homelessness
CPT/HCPCS: 80305; 97110-GP; 97161-GP; 97165-GO; G0378; G0480; G8978-GP-CJ; G8979-GP-CI; G8987-GO-CI; G8988-GO-CI; J0456; J0696; J1650; J2405

== ENCOUNTER 2016-09-05 21:10 | Inpatient (IN) | payer OTHER, MEDICAID ==
[2016-09-05] MEDS ORDERED: NICOTINE POLACRILEX 2 MG GUM B PRN (21:58)
[2016-09-05] MEDS ORDERED: MAGNESIUM HYDROXIDE 30 ML UDCUP PO PRN (21:58)
[2016-09-05] MEDS ORDERED: MAG HYDROX/AL HYDROX/SIMETH 30 ML UDCUP PO PRN (21:58)
[2016-09-06] MEDS: LORazepam 0.5 MG TAB PO PRN (08:05)
[2016-09-06] MEDS: OLANZapine DISINTEGR 10 MG TAB PO PRN (08:05)
[2016-09-06] MEDS ORDERED: ALBUTEROL 60 PUFFS/8 GM MDI IH PRN (09:18)
[2016-09-06] MEDS ORDERED: POLYETHYLENE GLYCOL 3350 17 GM PKT PO PRN (09:18)
[2016-09-06] MEDS ORDERED: DULoxetine 60 MG CAP PO SCH (09:30)
[2016-09-06] MEDS: metFORMIN HCL 500 MG TAB PO SCH ×2 (10:45→17:13)
[2016-09-06] MEDS: ASPIRIN EC 81 MG TAB PO SCH (10:46)
[2016-09-06] MEDS: LEVOTHYROXINE 150 MCG TAB PO SCH (10:46)
[2016-09-06] MEDS: FLUTICASONE/SALMETER 250/50MCG DISKUS IH SCH ×2 (10:47→21:51)
[2016-09-06] MEDS: SENNOSIDES/DOCUSATE SODIUM TAB PO SCH ×2 (10:51→20:06)
[2016-09-06] MEDS: HALOPERIDOL 5 MG TAB PO SCH ×3 (13:00→20:05)
--- NOTE | 2016-09-06 14:43 | BAPA ---
[f rep st] ADMISSION PSYCHIATRIC ASSESSMENT DATE OF SERVICE: 09/06/2016 CHIEF COMPLAINT: "I do not know why I agreed to come [facility]." HISTORY OF PRESENT ILLNESS: The patient is a 61-year-old male with a self-reported history of schizoaffective disorder. He was admitted on transfer from the medical floor after having been t reated for a pneumonia. He was there from 09/01/2016 to 09/05/2016, and discharged in a stable condi tion. He was diagnosed at that time with community-acquired pneumonia and possible sepsis. Depressi on and bipolar disorder are mentioned, though the patient states that he has in fact been diagnosed w ith schizoaffective disorder in the past. He states that he was at [facility] in [facility] from 08/10/2016 to approximally 08/23 or . He states he was "very depressed and suicidal" at that time, and was treated by Dr. Cotton with ECT. He states he received 3 ECT treatments and " it totally fried my brain; my brain is completely ruined now." He was then discharged from the that facility and has been homeless. He presented to the emergency department with symptoms of pneumonia and was admitted on the . He reports having been treated with a number of different medications in the past, though he states he cannot remember what they are. He states that his current medicatio n regimen has been consistent for some time. He is angry and somewhat uncooperative. He is demandin g that his medications be restarted, which I did, but that he did not believe I did, stating that "ev erything is F'd up." I assured him that the medicines were right and in fact sat with him on the com puter while I put them in and verified each 1 with him. An hour later, he was swearing at me in the day room that I had essentially messed up his medications. He was similarly hostile to the nursing s taff, and was difficult to reason with. He cuts the interview short because he becomes angry over so mething that I am not quite aware of and makes the statement about regretting he ever came to this cility. PAST PSYCHIATRIC HISTORY: Significant for previous diagnosis of schizoaffective disorder, appears to be primarily depressive and a recent hospitalization at [facility]. He was not forthcoming of other information. He states he has been in the hospital elsewhere before and that he has been ismael joanie with medications before but he cannot or will not tell me what those are. He also will not state whether he has had any suicide attempts in the past. ALLERGIES: No known medical allergies. CURRENT MEDICATIONS: Advair Diskus inhaler 1 puff b.i.d., enteric-coated aspirin 81 mg daily, BuSpar 20 mg t.i.d., benztropine 1 mg t.i.d., Cymbalta 60 mg b.i.d., metformin 500 mg b.i.d., Haldol 5 mg q .i.d., Lipitor 10 mg p.o. at bedtime, melatonin 3 mg at bedtime, prazosin 4 mg at bedtime, albuterol inhaler 2 puffs q.4 hours as needed, levothyroxine 150 mcg daily, and trazodone 50 mg at bedtime. PAST MEDICAL HISTORY: Significant for the recent community-acquired pneumonia, possible type 2 diabe becky, hypothyroidism, hypertension, hyperlipidemia, COPD. SOCIAL HISTORY: The patient is not . He states that he is homeless. He states he has been h omeless for the last 8 months after leaving an assisted living facility in [place], which he states he did not like. He then states that he wants to have an assisted living. Program provided for him be fore he leaves this hospitalization. He is vague about what he has been doing while homeless for the last 8 months. He reports having no friends or relatives as available supports. He denies any lega l problems. SUBSTANCE ABUSE HISTORY: Patient denies. FAMILY HISTORY: Noncontributory, per patient's report. ADMISSION LABORATORIES: No additional labs were drawn, though full complement of labs were followed during his hospitalization at [facility]. No significant abnormalities were noted except for moderate ly elevated glucose ranging from 118-174. MENTAL STATUS EXAMINATION: The patient is unkempt, though not malodorous. He is guarded, initially refusing to speak or make eye contact with staff, though when I introduced myself as the doctor, he i mmediately makes eye contact and agrees to come and talk with me. His affect is constricted, irritab le, hostile at times. Stable. His mood is described as "terrible." His thought process is linear a nd goal directed. His thought content reveals no evidence of psychosis. He may be paranoid, though is difficult to separate this from what appears to be a general rather hostile nature. He is alert a nd oriented to person, place, time, and situation, and his sensorium is clear. There is no evidence of delirium. His intellect appears to be at least average, as evidenced by his fund of knowledge and vocabulary. He continues to endorse suicidal ideations, stating "I just wanna " and his insight and judgment appear to be fair. IMPRESSION: The patient is a 61-year-old male with a history of possible schizoaffective d isorder. He presents at this time with a self reported depression and suicidal ideation. He was at the [facility] being treated for the pneumonia and when they were ready to discharge him, he be amina to voice these thoughts. There is certainly secondary gain to be had here and I question the pos sibility of malingering. His report of his experiences [place] are clearly exaggerated and also evidence of his underlying characterologic issues. DIAGNOSTIC IMPRESSION: 1. Schizoaffective disorder, depressed, chronic with acute exacerbation. Homelessness, lack of supp orts, chronic illness, possible malingering. PLAN: 1. Admit to the behavioral health services inpatient unit on an M1 hold. 2. Conduct serial clinical interviews, attempt to establish a therapeutic [place], though it may be difficult and continue the patient's previous medications per his request. 3. Consider adjusting medications, though they seem to be adequate at this time. The patient specif ically wants to continue the haloperidol, despite conversation in regard to potential long-term side effects and risks. If we were to use an atypical, we might have a better response as an augmentation agent for the Cymbalta, though I would not want to destabilize things unnecessarily if the patient i s unwilling to participate. 4. Estimated length of stay is 3-5 days. /[id number]/MODL
[2016-09-06] MEDS: BENZTROPINE MESYLATE 2 MG TAB PO SCH ×2 (16:12→20:06)
[2016-09-06] MEDS: busPIRone 10 MG TAB PO SCH ×2 (16:17→22:30)
[2016-09-06] MEDS ORDERED: metFORMIN HCL 500 MG TAB PO SCH (18:00)
[2016-09-06] MEDS ORDERED: BISACODYL 10 MG SUPP PR PRN (19:01)
--- NOTE | 2016-09-06 19:39 | BCON ---
[f rep st] BEHAVIORAL HEALTH CONSULTATION INTERNAL MEDICINE CONSULTATION DATE OF CONSULTATION: 09/06/2016 REFERRING PHYSICIAN: Carmela Davila MD REASON FOR CONSULTATION: Medical clearance for inpatient behavioral health stay. HISTORY OF PRESENT ILLNESS: The patient was admitted to [facility] on 09/01/2016 with cough and shortness of breath. He was diagnosed with pneumonia as well as mild sepsis. He was treated with antibiotics and was stabilized. He expressed suicidal ideation as his discharge date was approaching and so he was transferred to inpatient behavioral [facility] for further psychiatric care. He currently complains of constipation. He reports he has not moved his bowels since his hospitalization on September 01. He also still has shortness of breath and a cough with yellow sputum. He denies fevers or chills. PAST MEDICAL HISTORY: 1. Mental health issues with diagnosis of schizoaffective disorder. 2. Diabetes mellitus type 2. 3. Chronic obstructive pulmonary disease. 4. Hypertension. 5. Dyslipidemia. 6. Hypothyroidism. PAST SURGICAL HISTORY: Denies history of any surgeries. MEDICATIONS: On hospital discharge: 1. Duloxetine 60 mg p.o. daily. 2. Atorvastatin 10 mg p.o. at bedtime. 3. Aspirin 81 mg p.o. daily. 4. Albuterol 2 puffs q.4 hours p.r.n. 5. Acetaminophen 650 mg p.o. q.4 hours p.r.n. 6. Cepacol lozenges p.r.n. 7. Benztropine 1 mg p.o. 3 times daily. 8. Levothyroxine 150 mcg p.o. daily. 9. Hydrocodone/acetaminophen 1-2 tabs q.4 hours p.r.n. 10. Haloperidol 5 mg p.o. 4 times daily. 11. Fluticasone/salmeterol 250/50 mcg 1 puff b.i.d. 12. Buspirone 20 mg p.o. 3 times daily. 13. Senna/docusate 1-2 tabs p.o. b.i.d. 14. Prazosin 4 mg p.o. at bedtime. 15. Polyethylene glycol 17 mg p.o. daily p.r.n. 16. Ondansetron 4 mg p.o. q.4 hours p.r.n. 17. Melatonin 3 mg p.o. at bedtime. 18. Trazodone 50 mg p.o. at bedtime. 19. Metformin 500 mg p.o. b.i.d. ALLERGIES: There are no known drug allergies. SOCIAL HISTORY: He is homeless. He is unemployed. He has social security disability income and Medicaid. FAMILY HISTORY: Noncontributory. REVIEW OF SYSTEMS: Other than as in HPI. A 10-point review of systems was conducted and was negative. PHYSICAL EXAM: VITAL SIGNS: From yesterday evening, his blood pressure was 120 /71, his heart rate was 127, his respiratory rate was 16, his oxygen saturation was 87% on room air, previously it was 92% on 2 L. His temperature was 36.6 degrees. His weight has not been determined yet on the inpatient behavioral health unit; however, in the acute hospital his weight was 88.5 kg for a body mass index of 27.2. GENERAL: This is an overweight man, appears his chronologic age, somewhat unkempt, with long hair and a schulz, cooperative and in no acute distress. HEENT: Extraocular movements are intact. Pupils are equal, round, and reactive to light and accommodation. Mucous membranes are moist. Dentition is in good condition. He has an uncrowded airway. NECK: Supple. HEART: Regular rate and rhythm with no murmurs, rubs, or gallops. LUNGS: Clear to auscultation bilaterally. ABDOMEN: Soft, nontender, nondistended, with normoactive bowel sounds. EXTREMITIES: There is no cyanosis , clubbing, or edema. NEUROLOGIC: He is alert and oriented x3. Cranial nerves 2-12 are grossly intact. There is no focal weakness and gait is within normal limits. LABORATORY STUDIES: Most recently, from during his hospitalization: CBC on admission had an elevated white count at 11.05. There was no left shift but there was a predominance of neutrophils. On the next day, 09/01/2016, his white blood cell count had come down slightly to 10.69 and he was showing anemia possibly due to hydration with hemoglobin of 13.6 and hematocrit of 39.6. Coagulation studies were within normal limits. Blood gas showed venous lactic acid of 1.4, serum chemistry showed normal renal function and electrolytes. Elevated glucose at 225. Hemoglobin A1c of 6.6. Calcium, phosphorus and magnesium were normal. TSH was normal. Troponin was negative x4. Urinalysis showed trace ketones and 3+ glucose, otherwise normal. Serum toxicology screen was negative for ethyl alcohol. Urine toxicology screen was negative for substances of abuse. ASSESSMENT/RECOMMENDATIONS: 1. Mental health issues pending further evaluation and management per Psychiatry and the mental health team. 2. Pneumonia, appears to be adequately treated, although still somewhat symptomatic with subjective shortness of breath and cough. His vital signs and oxygenation should be monitored. He has received adequate antibiotic treatment while in the hospital. Oxygenation should be monitored and he should be given oxygen should his oxygen saturation be measured at 89% or less. 3. Constipation. He has laxatives ordered including milk of magnesia, polyethylene glycol and senna/docusate. I will add a bisacodyl suppository which should be used should he not have a bowel movement with his current bowel medications. 4. Chronic obstructive pulmonary disease, on appropriate inhalers. 5. Diabetes mellitus type 2 with historically good control and A1c of 6.6. Continue his metformin. 6. Hypertension, apparently has been adequately controlled with prazosin. This is not the first line for diabetes mellitus; however, the consideration of addition of an SHYANNE inhibitor can be done with primary care after his discharge. 7. Dyslipidemia, would continue his statin. 8. Hypothyroidism, adequately replaced. I see no medical contraindications to the patient's continued stay on the inpatient behavioral health unit or to any psychiatric medications or procedures. Thank you very much for including me in the care of this patient. Please do not hesitate to contact me or the hospitalist service should there be need for further medical evaluation. /[id number]/MODL MTDD
[2016-09-06] MEDS: DULoxetine 60 MG CAP PO SCH (20:05)
[2016-09-06] MEDS: PRAZOSIN HCL 1 MG CAP PO SCH (20:05)
[2016-09-06] MEDS: ATORVASTATIN CALCIUM 10 MG TAB PO SCH (20:06)
[2016-09-06] MEDS: traZODone 50 MG TAB PO SCH (20:06)
[2016-09-06] MEDS: MELATONIN 3 MG TAB PO SCH (20:06)
[2016-09-06] MEDS ORDERED: PRAZOSIN HCL 4 MG PO SCH (21:00)
[2016-09-07] MEDS: LEVOTHYROXINE 150 MCG TAB PO SCH (05:59)
[2016-09-07] MEDS: HALOPERIDOL 5 MG TAB PO SCH ×4 (05:59→19:09)
[2016-09-07] MEDS: metFORMIN HCL 500 MG TAB PO SCH ×2 (07:59→16:53)
[2016-09-07] MEDS: ASPIRIN EC 81 MG TAB PO SCH (07:59)
[2016-09-07] MEDS: BENZTROPINE MESYLATE 2 MG TAB PO SCH ×3 (07:59→19:09)
[2016-09-07] MEDS: SENNOSIDES/DOCUSATE SODIUM TAB PO SCH ×2 (08:00→19:09)
[2016-09-07] MEDS: DULoxetine 60 MG CAP PO SCH ×2 (08:01→19:09)
[2016-09-07] MEDS: FLUTICASONE/SALMETER 250/50MCG DISKUS IH SCH ×2 (08:02→19:10)
[2016-09-07] MEDS: busPIRone 10 MG TAB PO SCH ×3 (08:08→19:09)
[2016-09-07] MEDS: LORazepam 0.5 MG TAB PO PRN ×2 (10:20→14:54)
--- NOTE | 2016-09-07 14:22 | SOAPPROG ---
SOAP Progress Note Assessment/Plan: Assessment: Plan: 09/07/16 14:21 No change. CCM. Subjective: Pt seen, discussed with staff. Reports feeling "the same, terrible." States he is having "a severe panic attack." Sitting quietly in day room with no outward signs of anxiety. refused one dose of Haldol yesterday stating he only takes it three times per day. Objective: Vital Signs Temp Pulse Resp BP Pulse Ox 36.7 C 94 20 114/71 91 L 09/06/16 19:25 09/06/16 19:25 09/06/16 19:25 09/06/16 19:25 09/06/16 19:25 - Time Spent With Patient Time Spent With Patient: 15" - Pending Discharge Pending Discharge Within 24 Hours: No Pending Discharge Within 48 Hours: No ICD10 Worksheet Patient Problems: Problems Problem Status Diagnosed Chest pain Acute Pneumonia Acute Sepsis Acute
[2016-09-07] MEDS ORDERED: TUBERCULIN (PPD) 5 TU/0.1 ML SYRINGE ID ONE (17:30)
[2016-09-07] MEDS: MELATONIN 3 MG TAB PO SCH (19:09)
[2016-09-07] MEDS: PRAZOSIN HCL 1 MG CAP PO SCH (19:09)
[2016-09-07] MEDS: traZODone 50 MG TAB PO SCH (19:09)
[2016-09-07] MEDS: ATORVASTATIN CALCIUM 10 MG TAB PO SCH (19:09)
[2016-09-08] MEDS: LEVOTHYROXINE 150 MCG TAB PO SCH (06:40)
[2016-09-08] MEDS: metFORMIN HCL 500 MG TAB PO SCH ×2 (08:01→16:56)
[2016-09-08] MEDS: busPIRone 10 MG TAB PO SCH ×3 (08:01→20:16)
[2016-09-08] MEDS: ASPIRIN EC 81 MG TAB PO SCH (08:01)
[2016-09-08] MEDS: BENZTROPINE MESYLATE 2 MG TAB PO SCH ×3 (08:01→20:16)
[2016-09-08] MEDS: HALOPERIDOL 5 MG TAB PO SCH ×3 (08:01→20:16)
[2016-09-08] MEDS: DULoxetine 60 MG CAP PO SCH ×2 (08:01→20:16)
[2016-09-08] MEDS: SENNOSIDES/DOCUSATE SODIUM TAB PO SCH ×2 (08:01→20:16)
[2016-09-08] MEDS: FLUTICASONE/SALMETER 250/50MCG DISKUS IH SCH ×2 (08:11→20:17)
[2016-09-08] MEDS: LORazepam 0.5 MG TAB PO PRN (10:06)
--- NOTE | 2016-09-08 10:36 | SOAPPROG ---
SOAP Progress Note Assessment/Plan: Assessment: Pt is a 61 y/o Homeless C male who was seen briefly by this MD on the medical unit after he expressed SI and depressed mood. Pt was hosp with pneumonia and was transferred to the psych unit for tx of his depression. His main concern is getting into an CHARITY and reportedly he was in one in [place] and left. He currently denies SI or AH and is willing to sign in VOL. Pt reports a hx of Schizoaffective D/O and has had multiple psych hosp and a short course of ECT which he stopped due to reported side effects. Plan: pt will sign in VOL con't current meds CM working on D/C plans 09/08/16 10:38 Subjective: "I'm still having problems breathing. I had pneumonia." Objective: Vital Signs Temp Pulse Resp BP Pulse Ox 36.6 C 97 12 127/75 H 90 L 09/08/16 07:52 09/08/16 07:52 09/08/16 06:00 09/08/16 07:52 09/08/16 07:52 Pt is A+O x4 mood-"not good" affect-appr no S/H I no A/V H no delusions thoughts-logical speech-wnl slept 10 hours memory/conc-intact no sx psychosis/nika no MARTIR I/J-fair - Time Spent With Patient Time Spent With Patient: 25' - Pending Discharge Pending Discharge Within 24 Hours: No Pending Discharge Within 48 Hours: No ICD10 Worksheet Patient Problems: Problems Problem Status Diagnosed Chest pain Acute Pneumonia Acute Sepsis Acute
[2016-09-08] MEDS ORDERED: ONDANSETRON DISINTEGRATING 4 MG TAB ONE (13:08)
[2016-09-08] MEDS ORDERED: ONDANSETRON DISINTEGRATING 4 MG TAB PO ONE (13:30)
[2016-09-08] MEDS ORDERED: BISACODYL 10 MG SUPP PR ONE (15:30)
[2016-09-08] MEDS ORDERED: PROMETHAZINE HCL 25 MG TAB PO ONE (16:30)
[2016-09-08] MEDS: traZODone 50 MG TAB PO SCH (20:15)
[2016-09-08] MEDS: PRAZOSIN HCL 1 MG CAP PO SCH (20:15)
[2016-09-08] MEDS: MELATONIN 3 MG TAB PO SCH (20:16)
[2016-09-08] MEDS: ATORVASTATIN CALCIUM 10 MG TAB PO SCH (20:16)
[2016-09-09] MEDS: LEVOTHYROXINE 150 MCG TAB PO SCH (06:55)
[2016-09-09] MEDS: FLUTICASONE/SALMETER 250/50MCG DISKUS IH SCH ×2 (07:38→19:12)
[2016-09-09] MEDS: metFORMIN HCL 500 MG TAB PO SCH ×2 (07:54→17:36)
[2016-09-09] MEDS: BENZTROPINE MESYLATE 2 MG TAB PO SCH ×3 (07:54→19:06)
[2016-09-09] MEDS: SENNOSIDES/DOCUSATE SODIUM TAB PO SCH ×2 (07:54→19:08)
[2016-09-09] MEDS: busPIRone 10 MG TAB PO SCH ×3 (07:54→19:07)
[2016-09-09] MEDS: HALOPERIDOL 5 MG TAB PO SCH (07:55)
[2016-09-09] MEDS: ASPIRIN EC 81 MG TAB PO SCH (07:55)
[2016-09-09] MEDS: DULoxetine 60 MG CAP PO SCH ×2 (07:55→19:10)
[2016-09-09] MEDS ORDERED: LEVOTHYROXINE 150 MCG TAB PO SCH (10:00)
[2016-09-09] MEDS ORDERED: MAGNESIUM CITRATE 300 ML BOTTLE PO ONE (10:45)
--- NOTE | 2016-09-09 11:18 | SOAPPROG ---
SOAP Progress Note Assessment/Plan: Assessment: Pt is a 61 y/o Homeless C male who was seen briefly by this MD on the medical unit after he expressed SI and depressed mood. Pt was hosp with pneumonia and was transferred to the psych unit for tx of his depression. His main concern is getting into an CHARITY and reportedly he was in one in [place] and left. He currently denies SI or AH and is willing to sign in VOL. Pt reports a hx of Schizoaffective D/O and has had multiple psych hosp and a short course of ECT which he stopped due to reported side effects. 09/08/16-pt vomiting twice 09/09/16 c/o AH and wants different med other than Haldol-agrees to Zyprexa Plan: pt is VOL con't current meds CM working on D/C plans Will D/C haldol and order Zyprexa for reported AH 09/09/16 12:10 Subjective: C/O AH and wants med change Objective: Vital Signs Temp Pulse Resp BP Pulse Ox 36.3 C 82 12 105/57 L 94 09/09/16 06:36 09/09/16 06:36 09/09/16 06:36 09/09/16 06:36 09/09/16 06:36 Pt is A+O mood-irritable affect-appr no S/H I prvqbqer-[id number] on housing + A no Par I no Delusions speech-wnl slept 9 hours good appetite no sx psychosis/nika no MARTIR I/J-fair - Time Spent With Patient Time Spent With Patient: 20' - Pending Discharge Pending Discharge Within 24 Hours: No Pending Discharge Within 48 Hours: No ICD10 Worksheet Patient Problems: Problems Problem Status Diagnosed Chest pain Acute Pneumonia Acute Sepsis Acute
[2016-09-09] MEDS: ATORVASTATIN CALCIUM 10 MG TAB PO SCH (19:06)
[2016-09-09] MEDS: PRAZOSIN HCL 1 MG CAP PO SCH (19:08)
[2016-09-09] MEDS: MELATONIN 3 MG TAB PO SCH (19:09)
[2016-09-09] MEDS: traZODone 50 MG TAB PO SCH (19:09)
[2016-09-09] MEDS ORDERED: OLANZapine 2.5 MG TAB PO SCH (21:00)
[2016-09-10] MEDS: LEVOTHYROXINE 150 MCG TAB PO SCH (06:36)
[2016-09-10] MEDS: BENZTROPINE MESYLATE 2 MG TAB PO SCH ×3 (07:35→20:14)
[2016-09-10] MEDS: DULoxetine 60 MG CAP PO SCH ×2 (07:36→20:15)
[2016-09-10] MEDS: SENNOSIDES/DOCUSATE SODIUM TAB PO SCH ×2 (07:36→20:17)
[2016-09-10] MEDS: busPIRone 10 MG TAB PO SCH ×3 (07:36→20:14)
[2016-09-10] MEDS: metFORMIN HCL 500 MG TAB PO SCH ×2 (07:36→17:20)
[2016-09-10] MEDS: ASPIRIN EC 81 MG TAB PO SCH (07:36)
[2016-09-10] MEDS: FLUTICASONE/SALMETER 250/50MCG DISKUS IH SCH ×2 (07:37→20:31)
[2016-09-10] MEDS: LORazepam 0.5 MG TAB PO PRN (09:25)
--- NOTE | 2016-09-10 10:24 | SOAPPROG ---
SOAP Progress Note Assessment/Plan: Assessment: Pt is a 61 y/o Homeless C male who was seen briefly by this MD on the medical unit after he expressed SI and depressed mood. Pt was hosp with pneumonia and was transferred to the psych unit for tx of his depression. His main concern is getting into an GROUP HOME and reportedly he was in one in [place] and left. He currently denies SI or AH and is willing to sign in VOL. Pt reports a hx of Schizoaffective D/O and has had multiple psych hosp and a short course of ECT which he stopped due to reported side effects. 09/08/16-pt vomiting twice 09/09/16 c/o AH and wants different med other than Haldol-agrees to Zyprexa 09/10/16-pt sitting very calmly but reports "I'm having a panic attack." Plan: pt is VOL con't current meds CM working on D/C plans Pt will no side effects from HS Zyprexa last night so will increase to 10mg QHS for reported AH 09/10/16 10:22 Subjective: "I'm having a panic attack." Pt does not look anxious Objective: Vital Signs Temp Pulse Resp BP Pulse Ox 36.6 C 98 14 119/74 94 09/10/16 06:46 09/10/16 06:46 09/10/16 06:46 09/10/16 06:46 09/10/16 06:46 Pt is A+O x4 mood-"Anxious" affect-const +AH +SI 10/12 but contracts for safety no delusions slept 11 hours good appetite speech-wnl [id number]-[id number]-uyiqszv on housing no MARTIR memory-intact I/J-fair - Time Spent With Patient Time Spent With Patient: 20' - Pending Discharge Pending Discharge Within 24 Hours: No Pending Discharge Within 48 Hours: No ICD10 Worksheet Patient Problems: Problems Problem Status Diagnosed Chest pain Acute Pneumonia Acute Sepsis Acute
[2016-09-10] MEDS: ACETAMINOPHEN 325 MG TAB PO PRN (14:21)
[2016-09-10] MEDS: ATORVASTATIN CALCIUM 10 MG TAB PO SCH (20:13)
[2016-09-10] MEDS: MELATONIN 3 MG TAB PO SCH (20:15)
[2016-09-10] MEDS: PRAZOSIN HCL 1 MG CAP PO SCH (20:16)
[2016-09-10] MEDS: OLANZapine DISINTEGR 10 MG TAB PO SCH (20:16)
[2016-09-10] MEDS: traZODone 50 MG TAB PO SCH (20:32)
[2016-09-11] MEDS: LEVOTHYROXINE 150 MCG TAB PO SCH (05:57)
[2016-09-11] MEDS: busPIRone 10 MG TAB PO SCH ×3 (07:43→20:36)
[2016-09-11] MEDS: FLUTICASONE/SALMETER 250/50MCG DISKUS IH SCH ×2 (07:43→20:35)
[2016-09-11] MEDS: DULoxetine 60 MG CAP PO SCH ×2 (07:44→19:59)
[2016-09-11] MEDS: BENZTROPINE MESYLATE 2 MG TAB PO SCH ×3 (07:44→19:57)
[2016-09-11] MEDS: metFORMIN HCL 500 MG TAB PO SCH ×2 (07:45→18:24)
[2016-09-11] MEDS: ASPIRIN EC 81 MG TAB PO SCH (07:45)
[2016-09-11] MEDS: SENNOSIDES/DOCUSATE SODIUM TAB PO SCH ×2 (07:45→20:00)
--- NOTE | 2016-09-11 11:19 | SOAPPROG ---
SOAP Progress Note Assessment/Plan: Assessment: Plan: 09/07/16 14:21 No change. CCM. 09/11/16 11:19 No interval change. Now on Zyprexa. WIll [facility], monitor. Continue active d/c planning. Subjective: Pt seen, discussed with staff. Reports feeling "really anxious." Sitting quietly in day room. C/o rash on his buttocks. Barrier cream ordered. Mood remains low. Focused on need for permanent housing. Haldol changed to Zyprexa over weekend. Objective: Vital Signs Temp Pulse Resp BP Pulse Ox 36.9 C 91 12 110/54 L 91 L 09/11/16 06:00 09/11/16 06:00 09/11/16 06:00 09/11/16 06:00 09/11/16 06:00 MSE: Calm, coop., engaging. Affect is blunted, stable, approp. Mood is "terrible." TP linear. TC reveals no psychosis. SI persists though is seemingly contingent on d/c planning. - Time Spent With Patient Time Spent With Patient: 15" - Pending Discharge Pending Discharge Within 24 Hours: No ICD10 Worksheet Patient Problems: Problems Problem Status Diagnosed Chest pain Acute Pneumonia Acute Sepsis Acute
[2016-09-11] MEDS: LORazepam 0.5 MG TAB PO PRN ×3 (11:29→19:59)
[2016-09-11] MEDS: ACETAMINOPHEN 325 MG TAB PO PRN ×3 (11:30→20:01)
[2016-09-11] MEDS: traZODone 50 MG TAB PO SCH (19:59)
[2016-09-11] MEDS: PRAZOSIN HCL 1 MG CAP PO SCH (19:59)
[2016-09-11] MEDS: ATORVASTATIN CALCIUM 10 MG TAB PO SCH (20:00)
[2016-09-11] MEDS: MELATONIN 3 MG TAB PO SCH (20:00)
[2016-09-11] MEDS: OLANZapine DISINTEGR 10 MG TAB PO SCH (20:01)
[2016-09-12] MEDS: LEVOTHYROXINE 150 MCG TAB PO SCH (06:10)
[2016-09-12] MEDS: FLUTICASONE/SALMETER 250/50MCG DISKUS IH SCH ×2 (07:44→21:19)
[2016-09-12] MEDS: LORazepam 0.5 MG TAB PO PRN ×2 (07:49→14:03)
[2016-09-12] MEDS: DULoxetine 60 MG CAP PO SCH ×2 (07:49→20:56)
[2016-09-12] MEDS: metFORMIN HCL 500 MG TAB PO SCH ×2 (07:49→16:54)
[2016-09-12] MEDS: SENNOSIDES/DOCUSATE SODIUM TAB PO SCH ×2 (07:50→21:02)
[2016-09-12] MEDS: BENZTROPINE MESYLATE 2 MG TAB PO SCH ×3 (07:50→21:02)
[2016-09-12] MEDS: busPIRone 10 MG TAB PO SCH ×3 (07:50→20:56)
[2016-09-12] MEDS: ASPIRIN EC 81 MG TAB PO SCH (07:50)
[2016-09-12] MEDS: ACETAMINOPHEN 325 MG TAB PO PRN ×2 (09:32→14:03)
--- NOTE | 2016-09-12 12:37 | SOAPPROG ---
SOAP Progress Note Assessment/Plan: Assessment: Plan: 09/07/16 14:21 No change. CCM. 09/11/16 11:19 No interval change. Now on Zyprexa. WIll [facility], monitor. Continue active d/c planning. 09/12/16 12:36 Improving. May benefit from step-down. Will [facility], discuss case with [facility]. Subjective: Pt seen, discussed with staff. Reports feeling "terrible." Continues to c/o subjective anxiety. Also c/o rash on his buttocks. I spoke with Dr. Phan who will see him today. Compliant with all medications. Pleasant and cooperative with staff with no irritability or aggression. Objective: Vital Signs Temp Pulse Resp BP Pulse Ox 36.6 C 88 16 94/56 L 94 09/12/16 06:00 09/12/16 06:00 09/12/16 06:00 09/12/16 06:00 09/12/16 06:00 MSE: Calm, coop. Affect is blunted, stable. Mood is "not good." TP linear. TC reveals no psychosis. SI persists. - Time Spent With Patient Time Spent With Patient: 15" ICD10 Worksheet Patient Problems: Problems Problem Status Diagnosed Chest pain Acute Pneumonia Acute Sepsis Acute
--- NOTE | 2016-09-12 13:26 | SOAPPROG ---
SOAP Progress Note Assessment/Plan: Assessment: Rash, likely tinea. Trial of nystatin powder. Inform physician if not resolving. 09/12/16 13:26 Subjective: ATSP re painful rash on buttocks. Does not itch. Both sides. Calazyme lotion and medicated wipes have not helped. Objective: Vital Signs Temp Pulse Resp BP Pulse Ox 36.6 C 88 16 94/56 L 94 09/12/16 06:00 09/12/16 06:00 09/12/16 06:00 09/12/16 06:00 09/12/16 06:00 Physical Exam - Physical Exam Skin: other (Erythematous confluent rash along gluteal fold with areas of eschar. No drainage or purulence, no ulceration.) ICD10 Worksheet Patient Problems: Problems Problem Status Diagnosed Chest pain Acute Pneumonia Acute Sepsis Acute
[2016-09-12] MEDS: NYSTATIN POWDER 15 GM BTL TP SCH ×4 (14:32→21:10)
[2016-09-12] MEDS: traZODone 50 MG TAB PO SCH (20:55)
[2016-09-12] MEDS: PRAZOSIN HCL 1 MG CAP PO SCH (20:56)
[2016-09-12] MEDS: MELATONIN 3 MG TAB PO SCH (21:02)
[2016-09-12] MEDS: OLANZapine DISINTEGR 10 MG TAB PO SCH (21:02)
[2016-09-12] MEDS: ATORVASTATIN CALCIUM 10 MG TAB PO SCH (21:02)
[2016-09-13] MEDS: LEVOTHYROXINE 150 MCG TAB PO SCH (06:03)
[2016-09-13] MEDS: busPIRone 10 MG TAB PO SCH ×3 (07:53→19:47)
[2016-09-13] MEDS: SENNOSIDES/DOCUSATE SODIUM TAB PO SCH ×2 (07:54→19:46)
[2016-09-13] MEDS: LORazepam 0.5 MG TAB PO PRN ×3 (07:54→13:15)
[2016-09-13] MEDS: ASPIRIN EC 81 MG TAB PO SCH (07:55)
[2016-09-13] MEDS: ACETAMINOPHEN 325 MG TAB PO PRN ×3 (07:55→19:02)
[2016-09-13] MEDS: metFORMIN HCL 500 MG TAB PO SCH ×2 (07:55→17:04)
[2016-09-13] MEDS: BENZTROPINE MESYLATE 2 MG TAB PO SCH ×3 (07:56→19:47)
[2016-09-13] MEDS: DULoxetine 60 MG CAP PO SCH ×2 (07:56→19:46)
[2016-09-13] MEDS: NYSTATIN POWDER 15 GM BTL TP SCH ×3 (11:20→21:19)
[2016-09-13] MEDS: FLUTICASONE/SALMETER 250/50MCG DISKUS IH SCH ×2 (11:22→19:54)
--- NOTE | 2016-09-13 11:59 | SOAPPROG ---
SOAP Progress Note Assessment/Plan: Assessment: Plan: 09/07/16 14:21 No change. CCM. 09/11/16 11:19 No interval change. Now on Zyprexa. WIll [facility], monitor. Continue active d/c planning. 09/12/16 12:36 Improving. May benefit from step-down. Will [facility], discuss case with Maury Cabral. 09/13/16 11:58 Appears stable. His somatic c/o's and SI may be manipulative in regards to wanting housing. CCM. Continue active d/c planning. Subjective: Pt seen, discussed with staff. Reports feeling "really depressed and anxious." Continues to voice various somatic c/o's. Today he states he is SOB. He is noted to be breathing normally. No cough. Sats on RA are normal. He continues to voice vague SI "if I don't have a place to live." Objective: Vital Signs Temp Pulse Resp BP Pulse Ox 36.3 C 95 14 116/67 94 09/13/16 06:00 09/13/16 06:00 09/13/16 06:00 09/13/16 06:00 09/13/16 06:00 - Time Spent With Patient Time Spent With Patient: 15" ICD10 Worksheet Patient Problems: Problems Problem Status Diagnosed Chest pain Acute Pneumonia Acute Sepsis Acute
[2016-09-13] MEDS: traZODone 50 MG TAB PO SCH (19:46)
[2016-09-13] MEDS: PRAZOSIN HCL 1 MG CAP PO SCH (19:46)
[2016-09-13] MEDS: OLANZapine DISINTEGR 10 MG TAB PO SCH (19:46)
[2016-09-13] MEDS: ATORVASTATIN CALCIUM 10 MG TAB PO SCH (19:47)
[2016-09-13] MEDS: MELATONIN 3 MG TAB PO SCH (19:47)
[2016-09-14] MEDS: LEVOTHYROXINE 150 MCG TAB PO SCH (06:02)
[2016-09-14 06:40] VITALS: BP 121/69; PULSE 102; RESP 16; TEMP 97.4; O2SAT 93
[2016-09-14] MEDS: metFORMIN HCL 500 MG TAB PO SCH (07:54)
[2016-09-14] MEDS: ASPIRIN EC 81 MG TAB PO SCH (07:54)
[2016-09-14] MEDS: DULoxetine 60 MG CAP PO SCH (07:55)
[2016-09-14] MEDS: BENZTROPINE MESYLATE 2 MG TAB PO SCH (07:55)
[2016-09-14] MEDS: FLUTICASONE/SALMETER 250/50MCG DISKUS IH SCH (07:56)
[2016-09-14] MEDS: busPIRone 10 MG TAB PO SCH (07:56)
[2016-09-14] MEDS: NYSTATIN POWDER 15 GM BTL TP SCH (08:58)
[2016-09-14] MEDS: SENNOSIDES/DOCUSATE SODIUM TAB PO SCH (08:58)
[2016-09-14] MEDS: LORazepam 0.5 MG TAB PO PRN (10:00)
[2016-09-14] MEDS: OLANZapine DISINTEGR 10 MG TAB PO PRN (11:22)
== END 2016-09-14 13:15 | disposition home or self-care (01) | DRG 885 ==
LOC: BBEH 21:10
PROVIDERS: ADMIT Psychiatry & Neurology Psychiatry; ATTEND Psychiatry & Neurology Psychiatry
DX: F25.1 Schizoaffective disorder, depressive type (principal); I10 Essential (primary) hypertension; E03.9 Hypothyroidism, unspecified; K59.00 Constipation, unspecified; J44.9 Chronic obstructive pulmonary disease, unspecified; E78.5 Hyperlipidemia, unspecified; E11.9 Type 2 diabetes mellitus without complications; Z59.0 Homelessness; Z79.84 Long term (current) use of oral hypoglycemic drugs